=== PATIENT | female | born 1980 | race African-American/Black ===

== ENCOUNTER → 2020-10-04 | Outpatient (CLI) | payer BC | LOC: RAD 11:39 | PROVIDERS: ATTEND Nurse Practitioner | DX: M17.0 Bilateral primary osteoarthritis of knee (principal) ==

== ENCOUNTER → 2021-08-22 | Outpatient (CLI) | payer BC, OTHER | LOC: ULTRA 13:03 | PROVIDERS: ATTEND Nurse Practitioner | DX: O09.529 Supervision of elderly multigravida, unspecified trimester (principal); O46.91 Antepartum hemorrhage, unspecified, first trimester; N83.202 Unspecified ovarian cyst, left side; N92.0 Excessive and frequent menstruation with regular cycle; Z3A.01 Less than 8 weeks gestation of pregnancy ==